=== PATIENT | female | born 1955 | race Caucasian/White ===

== ENCOUNTER 2016-11-27 20:09 | Emergency (ER) | payer OTHER ==
[~2016-11-27] VITALS: Ht 165.1 cm; Wt 70.9 kg
[2016-11-27 20:14] VITALS: BP 160/92
[2016-11-27] MEDS ORDERED: LIDOCAINE 1%, 20ML ONE (20:30)
[2016-11-27] MEDS ORDERED: DIPHTHERIA-TETANUS ADULT 0.5ML IM-VACC ONE (20:30)
[2016-11-27] MEDS ORDERED: DIPH,PERTUSS(ACELL),TET VAC/PF 0.5 ML IM-VACC ONE ×2 (20:31→20:39)
[2016-11-27] MEDS ORDERED: LIDOCAINE 1%, 10ML INFIL ONE (21:00)
[2016-11-27] MEDS ORDERED: BACITRACIN ZINC OINT 500U/GM, 0.9 GM ONE (21:08)
== END 2016-11-27 21:35 | disposition home or self-care (01) ==
LOC: ED 21:20
DX: S61.216A Laceration without foreign body of right little finger without damage to nail, initial encounter (principal); Z23 Encounter for immunization; W45.8XXA Other foreign body or object entering through skin, initial encounter; Y93.89 Activity, other specified; Y99.8 Other external cause status; Y92.009 Unspecified place in unspecified non-institutional (private) residence as the place of occurrence of the external cause
CPT/HCPCS: 12001; 90471; 90714